=== PATIENT | male | born 1960 | race Caucasian/White ===

== ENCOUNTER 2023-03-29 13:57 | Emergency (ER) | payer BC ==
[~2023-03-29] VITALS: Ht 175.3 cm; Wt 102.1 kg
[2023-03-29 14:09] VITALS: O2SAT 97
== END 2023-03-29 14:41 | disposition home or self-care (01) ==
LOC: FSED 14:03
DX: R05.9 Cough, unspecified (principal); U07.1 COVID-19; R09.81 Nasal congestion; I10 Essential (primary) hypertension; I48.91 Unspecified atrial fibrillation; Z96.651 Presence of right artificial knee joint
CPT/HCPCS: 99282